=== PATIENT | male | born 1985 | race Caucasian/White ===

== ENCOUNTER 2022-01-11 14:23 | Emergency (ER) | payer OTHER ==
[~2022-01-11] VITALS: Ht 185.4 cm; Wt 97.5 kg
[2022-01-11 14:30] VITALS: BP_SYST 146
--- NOTE | 2022-01-11 14:37 | NUR ---
PT BROUGHT HIS UNCLE TO BE SEEN AND NOW WANTS TO GET CHECKED OUT FOR HIS HEART RATE. PT REPORTS WHEN HIS HEART RATE INCREASES HE HAS SEIZURES. PT UNABLE TO TELL AT WHAT HR PUTS HIM AT RISK. PT TAKES KEPPRA 1000 MG BID, HAS NOT TAKEN HIS MED FOR 2 DAYS. HR 96-101 IN ED.
--- NOTE | 2022-01-11 14:39 | NUR ---
PT PLACED BACK IN WR, DR. DAVIS MADE AWARE.
--- NOTE | 2022-01-11 16:57 | NUR ---
[place] of care received, pt A&Ox4, VSS, pt c/o palpitations earlier today, denies chest pain or other symptoms,pt states he only wants an EKG and he will leave the ER,MD notified.
--- NOTE | 2022-01-11 16:58 | NUR ---
DR DAVIS EVALUATING PT IN TRIAGE ROOM
--- NOTE | 2022-01-11 17:05 | NUR ---
Patient does not wish to proceed with medical care recommended by Dr Richards . Patient given information related to possible complications, up to and including , which could occur as a result of leaving hospital at this time. Patient verbalizes understanding of risks involved leaving against medical advice. Patient has signed AMA form.
[2022-01-11 17:09] VITALS: BP_SYST 146
[2022-01-11] MEDS ORDERED: LORazepam 1 MG TABLET PO ONE (17:15)
== END 2022-01-11 17:13 | disposition left against medical advice (07) ==
LOC: SED 14:23
DX: R00.2 Palpitations (principal); Z79.899 Other long term (current) drug therapy
CPT/HCPCS: 93005; 99283